=== PATIENT | male | born 1930 | race African-American/Black ===

== ENCOUNTER 2017-07-22 20:45 | Emergency (ER) | payer MEDICARE ==
[~2017-07-22] VITALS: Ht 180.3 cm; Wt 77.1 kg
[2017-07-22 21:00] VITALS: BP 137/75
[2017-07-22 22:02] LABS: HEMATOCRIT 48.3 % (42.0-52.0); HEMOGLOBIN 15.9 G/DL (14.2-18.0); MEAN CORPUSCULAR VOLUME 87 FL (80-99); PLATELET COUNT 255 K/UL (150-450); RED BLOOD COUNT 5.57 M/UL (4.70-6.10); RED CELL DISTRIBUTION WIDTH 15.4 % (11.6-14.8); WHITE BLOOD COUNT 11.2 K/UL (4.8-10.8)
[2017-07-22 22:03] LABS: BASOPHILS % (AUTO) 1.4 % (0.0-2.0); EOSINOPHILS % (AUTO) 0.1 % (0.0-3.0); LYMPHOCYTES % (AUTO) 5.6 % (20.0-45.0); MONOCYTES % (AUTO) 7.1 % (1.0-10.0); NEUTROPHILS % (AUTO) 85.8 % (45.0-75.0)
[2017-07-22 22:12] LABS: ANION GAP 9 mmol/L (5-15); BLOOD UREA NITROGEN 20 mg/dL (7-18); CALCIUM 9.8 MG/DL (8.5-10.1); CARBON DIOXIDE 32 MMOL/L (21-32); CHLORIDE 99 MMOL/L (98-107); CREATININE 1.3 MG/DL (0.55-1.30); SODIUM 140 MMOL/L (136-145)
--- NOTE | 2017-07-22 22:16 | Emergency Room Report ---
History of Present Illness General Chief Complaint: Multiple Trauma/Fall Source: Patient Present Illness HPI Patient is an 87-year-old male who had recent fall. Patient was found down on the ground after prolonged time. Patient was wearing a life alert necklace however he did not remember that he had a life alert bracelet and did not activated to call for help. The patient was subsequently found by family member and noted to be having increased pain to his knees.The patient was having prior history of gouty arthritis. The patient was noted to be somewhat confused. History is mildly limited by patient's mental status. Allergies: Coded Allergies: No Known Allergies (Unverified , 07/22/17) Patient History Past Medical History: see triage record Reviewed Nursing Documentation: PMH: Agreed; PSxH: Agreed Nursing Documentation-PMH Hx Diabetes: Yes Review of Systems All Other Systems: limited - by mental status Physical Exam Vital Signs Date Time Temp Pulse Resp B/P (MAP) Pulse Ox O2 Delivery O2 Flow Rate FiO2 07/22/17 20:41 100.0 96 18 137/75 94 Room Air 100.0 General Appearance: Chronically Ill ENT: dry mucus membranes Neck: limited range of motion - unable to rotate head to left Respiratory: lungs clear, normal breath sounds, no rhonchi Cardiovascular #1: normal peripheral pulses, regular rate, rhythm, edema Gastrointestinal: normal inspection, soft Musculoskeletal: decreased range of motion Neurologic: alert, responsive, 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 Medical Decision Making Diagnostic Impression: Primary Impression: Fall Additional Impressions: Dehydration Generalized weakness Rhabdomyolysis ER Course Patient presented after a fall. Differential diagnosis included was not limited to neck fracture, CVA, close head injury, syncopal episode, basilar ischemia. Because of complexity of patient's case laboratory testing and imaging studies were ordered.Laboratory testing was notable for elevated CPK. Patient was started on IV fluids. He was noted to appear somewhat dehydrated.Patient started on IV fluids and the patient stated that he was able to void sleep. The patient states that he currently lives alone Patient was noted to have some swelling to his right upper extremity as well as right knee which appears to be chronic due to gout. Patient was discussed with Dr. De Souza from [facility] . The patient is stable for transfer to [place] for further evaluation and treatment of rhabdomyolysis and dehydration Labs Test 07/22/17 21:45 White Blood Count 11.2 K/UL (4.8-10.8) Red Blood Count 5.57 M/UL (4.70-6.10) Hemoglobin 15.9 G/DL (14.2-18.0) Hematocrit 48.3 % (42.0-52.0) Mean Corpuscular Volume 87 FL (80-99) Mean Corpuscular Hemoglobin 28.5 PG (27.0-31.0) Mean Corpuscular Hemoglobin Concent 32.8 G/DL (32.0-36.0) Red Cell Distribution Width 15.4 % (11.6-14.8) Platelet Count 255 K/UL (150-450) Mean Platelet Volume 7.0 FL (6.5-10.1) Neutrophils (%) (Auto) 85.8 % (45.0-75.0) Lymphocytes (%) (Auto) 5.6 % (20.0-45.0) Monocytes (%) (Auto) 7.1 % (1.0-10.0) Eosinophils (%) (Auto) 0.1 % (0.0-3.0) Basophils (%) (Auto) 1.4 % (0.0-2.0) Prothrombin Time 10.6 SEC (9.30-11.50) Prothromb Time International Ratio 1.0 (0.9-1.1) Activated Partial Thromboplast Time 28 SEC (23-33) Sodium Level 140 MMOL/L (136-145) Potassium Level 4.0 MMOL/L (3.5-5.1) Chloride Level 99 MMOL/L (98-107) Carbon Dioxide Level 32 MMOL/L (21-32) Anion Gap 9 mmol/L (5-15) Blood Urea Nitrogen 20 mg/dL (7-18) Creatinine 1.3 MG/DL (0.55-1.30) Estimat Glomerular Filtration Rate mL/min (>60) Glucose Level 169 MG/DL (74-106) Calcium Level 9.8 MG/DL (8.5-10.1) EKG Diagnostic Results Rate: normal - 93 Rhythm: NSR ST Segments: no acute changes Rhythm Strip Diag. Results EP Interpretation: yes Rhythm: NSR, no PVC's, no ectopy Last Vital Signs Date Time Temp Pulse Resp B/P (MAP) Pulse Ox O2 Delivery O2 Flow Rate FiO2 07/22/17 20:41 100.0 96 18 137/75 94 Room Air 100.0 Status: unchanged Disposition: ADMITTED INPATIENT Condition: Serious Referrals: [facility] (PCP) Man Raman Jul 22, 2017 22:16
[2017-07-22 22:25] LABS: ALANINE AMINOTRANSFERASE 49 U/L (12-78); ALBUMIN 3.7 G/DL (3.4-5.0); ALBUMIN/GLOBULIN RATIO 0.8 (1.0-2.7); ALKALINE PHOSPHATASE 120 U/L (46-116); ASPARTATE AMINO TRANSFERASE 139 U/L (15-37); BILIRUBIN,TOTAL 1.6 MG/DL (0.2-1.0); CKMB 12.1 NG/ML (0.0-3.6); CREATINE KINASE 5174 U/L (26-308); PHOSPHORUS 2.6 MG/DL (2.5-4.9)
[2017-07-22 22:27] LABS: BILIRUBIN,DIRECT 0.3 MG/DL (0.0-0.3)
[2017-07-22 23:02] VITALS: BP 154/71
[2017-07-22] MEDS ORDERED: UNOBMED (23:07)
[2017-07-23 00:18] VITALS: BP 147/63
[2017-07-23 00:28] VITALS: BP 147/63
--- NOTE | 2017-07-23 10:22 | Diagnostic Imaging Report ---
Indication: Shortness of breath Technique: One view of the chest Comparison: none Findings: Patient is slightly rotated to the right. There is increased density in the right hilar and suprahilar region, which could be an artifact of rotation but could represent mass or infiltrate. The remainder of the lungs and pleural spaces are clear. The heart size is normal Impression: Possible right hilar mass or infiltrate. Consider chest CT if clinically indicated. Dr. Herman notified at the time of interpretation Otherwise clear lungs
--- NOTE | 2017-07-23 10:41 | Diagnostic Imaging Report ---
Indication: Pain Technique: 3 views of the right knee Comparison: None Findings: No suprapatellar effusion. No acute fractures. No dislocations. The joint spaces are preserved. There are degenerative medial and lateral osteophytes as well as patellofemoral osteophytes. There are fairly extensive vascular calcification Impression: Degenerative changes as described No acute bony trauma
--- NOTE | 2017-07-23 16:01 | Cardiology Report ---
APPROVED REPORT EKG Measurement Heart [id number] AL [id number] Sinus rhythm with premature atrial complexes Nonspecific T wave abnormality Abnormal ECG
== END 2017-07-23 00:29 | disposition other institution (70) ==
LOC: EDBD 20:45 → EMR 21:20
DX: E86.0 Dehydration (principal); M79.89 Other specified soft tissue disorders; R53.1 Weakness; M62.82 Rhabdomyolysis; W19.XXXA Unspecified fall, initial encounter; Y92.9 Unspecified place or not applicable
CPT/HCPCS: 36415; 71045; 80053; 82248; 82550; 82553; 83605; 83735; 84100; 84484; 85025; 85610; 85730; 87040; 93005; 96374; 99285